=== PATIENT | female | born 1955 | race Caucasian/White ===

== ENCOUNTER 2016-07-28 07:48 | Emergency (ER) | payer MEDICARE, MEDICAID ==
[~2016-07-28] VITALS: Ht 160 cm; Wt 77.3 kg
[~2016-07-28 07:48] MED LIST: ABILIFY20 MG PO; ASPIRIN 32325 MG/TAB PO; CYMBALTA 60MG60 MG PO; DEPAKOTE ER 25250 MG PO; DEPAKOTE ER 50500 MG PO; DESYREL 50MG50 MG PO; EVISTA 60MG60 MG/TAB PO; KLONOPIN 0.5MG0.5 MG PO; LASIX 20MG TABL20 MG PO; LIPITOR20 MG PO; MOBIC15 MG PO; NORVASC 10MG10 MG PO; PRIL40 PO; PRINIVIL20 MG PO; SYNTHROID0.1 MG/TAB PO; ULTRAM 50MG TAB50 MG PO
[2016-07-28 07:51] VITALS: BP 107/62; PULSE 91; TEMP 98.2
[2016-07-28] MEDS ORDERED: LEXAPRO20 MG PO (07:58)
[2016-07-28] MEDS ORDERED: REXULTI2 MG PO (08:00)
[2016-07-28] MEDS ORDERED: DEPAKOTE500 MG PO (08:01)
[2016-07-28] MEDS ORDERED: COGENTIN .0.5 MG/TAB PO (08:02)
[2016-07-28 08:46] LABS: BASO % 0.6 % (0.0-2.0); EOS # 0.1 (0.0-0.7); EOS % 1.4 % (0-4.0); GRAN # 2.6 (1.4-6.5); GRAN % 38.6 % (42.2-75.2); HEMATOCRIT 39.8 % (37.0-47.0); HEMOGLOBIN 12.5 g/dl (12.5-16.0); LYMPH # 3.3 (1.2-3.4); LYMPH % 50.2 % (20.0-51.0); MEAN CELL VOLUME 89 fl (80.0-100.0); MEAN CORPUSCULAR HEMOGLOBIN 28 pg (27.0-31.0); MEAN CORPUSCULAR HGB CONC 31 g/dl (33.0-37.0); MEAN PLATELET VOLUME 10.2 fl (7.4-10.4); MONO # 0.6 (0.1-0.6); MONO % 8.9 % (1.7-9.3); PLATELET COUNT 311 K/mm3 (130-400); RED BLOOD COUNT 4.49 M/mm3 (4.10-5.30); REDCELL DISTRIBUTION WIDTH-CV 15.8 % (11.5-14.5); WHITE BLOOD COUNT 6.7 K/mm3 (4.8-10.8)
[2016-07-28 08:53] LABS: ACETAMINOPHEN < 10 ug/mL (10-30); ADJUSTED CALCIUM 9.1 mg/dL (8.4-10.2); ALANINE AMINOTRANSFERASE 29 U/L (9-52); ALBUMIN 3.5 gm/dL (3.5-5.0); ALKALINE PHOSPHATASE 61 U/L (50-136); ANION GAP 13 mmol/L (7-16); BILIRUBIN,TOTAL 0.5 mg/dL (0.0-1.0); BLOOD UREA NITROGEN 13 mg/dL (7-17); CALCIUM 8.7 mg/dL (8.4-10.2); CARBON DIOXIDE 24 mmol/L (22-30); CHLORIDE 105 mmol/L (98-107); GLUCOSE 105 mg/dL (74-106); POTASSIUM 3.7 mmol/L (3.4-5.0); SALICYLATE < 1.0 mg/dL; SODIUM 142 mmol/L (137-145); TOTAL PROTEIN 6.6 gm/dL (6.4-8.2)
[2016-07-28 09:24] LABS: AMPHETAMINE URINE NEGATIVE; BARBITURATES URINE NEGATIVE; BENZODIAZEPINES URINE POSITIVE; BUPRENORPHINE URINE NEGATIVE; METHADONE URINE NEGATIVE; OPIATES URINE NEGATIVE; OXYCODONE URINE NEGATIVE; PHENCYCLIDINE URINE NEGATIVE; PROPOXYPHENE URINE NEGATIVE; THC CANNABINOIDS URINE NEGATIVE
== END 2016-07-28 15:52 ==
LOC: COL.ER 07:48
PROVIDERS: Physician Assistant
DX: F31.4 Bipolar disorder, current episode depressed, severe, without psychotic features (principal); R45.851 Suicidal ideations; Z91.5 Personal history of self-harm

== ENCOUNTER 2016-10-07 18:32 | Emergency (ER) | payer MEDICARE, MEDICAID ==
[~2016-10-07] VITALS: Ht 160 cm; Wt 75.3 kg
[~2016-10-07 18:32] MED LIST changes: +COGENTIN .0.5 MG/TAB PO; +DEPAKOTE500 MG PO; +LEXAPRO20 MG PO; +REXULTI2 MG PO
[2016-10-07 18:37] VITALS: TEMP 97.8
[2016-10-07] MEDS ORDERED: LATUDA20 MG PO (19:06)
[2016-10-07] MEDS ORDERED: COZAAR100 MG PO (19:08)
[2016-10-07] MEDS ORDERED: K-TAB10 PO (19:09)
[2016-10-07 19:23] LABS: BASO # 0.1 (0.0-0.2); BASO % 0.6 % (0.0-2.0); EOS # 0.1 (0.0-0.7); EOS % 1.3 % (0-4.0); GRAN # 3.3 (1.4-6.5); GRAN % 42.3 % (42.2-75.2); HEMATOCRIT 37.8 % (37.0-47.0); HEMOGLOBIN 12.1 g/dl (12.5-16.0); LYMPH # 3.4 (1.2-3.4); LYMPH % 43.7 % (20.0-51.0); MEAN CELL VOLUME 88 fl (80.0-100.0); MEAN CORPUSCULAR HEMOGLOBIN 28 pg (27.0-31.0); MEAN CORPUSCULAR HGB CONC 32 g/dl (33.0-37.0); MEAN PLATELET VOLUME 9.7 fl (7.4-10.4); MONO # 0.9 (0.1-0.6); MONO % 11.8 % (1.7-9.3); PLATELET COUNT 384 K/mm3 (130-400); REDCELL DISTRIBUTION WIDTH-CV 16.4 % (11.5-14.5); WHITE BLOOD COUNT 7.8 K/mm3 (4.8-10.8)
[2016-10-07 19:33] LABS: ADJUSTED CALCIUM 9.2 mg/dL (8.4-10.2); ALANINE AMINOTRANSFERASE 29 U/L (9-52); ALBUMIN 3.6 gm/dL (3.5-5.0); ALKALINE PHOSPHATASE 62 U/L (50-136); ANION GAP 12 mmol/L (7-16); BILIRUBIN,TOTAL 0.5 mg/dL (0.0-1.0); BLOOD UREA NITROGEN 9 mg/dL (7-17); CALCIUM 8.9 mg/dL (8.4-10.2); CARBON DIOXIDE 28 mmol/L (22-30); CHLORIDE 99 mmol/L (98-107); CREATININE, serum 0.85 mg/dL (0.52-1.25); GLUCOSE 103 mg/dL (74-106); POTASSIUM 3.2 mmol/L (3.4-5.0); SODIUM 139 mmol/L (137-145); TOTAL PROTEIN 6.5 gm/dL (6.4-8.2)
[2016-10-07 19:40] LABS: ACETAMINOPHEN < 10 ug/mL (10-30); SALICYLATE < 1.0 mg/dL
[2016-10-07 19:41] LABS: B-TYPE NATRIURETIC PEPTIDE 63 pg/mL (0-125)
[2016-10-07 20:01] LABS: PH 7 (5-8); SQUAMOUS EPITHELIAL 0-2 /hpf; URINE APPEARANCE Clear; URINE BACTERIA None Seen /hpf; URINE BILIRUBIN Negative (NEGATIVE); URINE BLOOD Negative (NEGATIVE); URINE COLOR Colorless; URINE GLUCOSE Negative (NEGATIVE); URINE KETONE Negative (NEGATIVE); URINE RBC 0-2 /hpf; URINE UROBILINOGEN Negative (NEGATIVE); URINE WBC 0-2 /hpf
[2016-10-07 20:08] LABS: AMPHETAMINE URINE NEGATIVE; BARBITURATES URINE NEGATIVE; BENZODIAZEPINES URINE NEGATIVE; BUPRENORPHINE URINE NEGATIVE; METHADONE URINE NEGATIVE; OPIATES URINE NEGATIVE; OXYCODONE URINE NEGATIVE; PHENCYCLIDINE URINE NEGATIVE; PROPOXYPHENE URINE NEGATIVE; THC CANNABINOIDS URINE NEGATIVE
[2016-10-07 22:36] VITALS: BP 145/95; PULSE 98
== END 2016-10-07 22:47 | disposition home or self-care (01) ==
LOC: COL.ER 18:32
PROVIDERS: Emergency Medicine
DX: F32.9 Major depressive disorder, single episode, unspecified (principal); R45.851 Suicidal ideations; I10 Essential (primary) hypertension; E87.6 Hypokalemia; R60.0 Localized edema; F17.210 Nicotine dependence, cigarettes, uncomplicated

== ENCOUNTER 2018-04-23 15:25 | Inpatient (IN) | payer MEDICARE, MEDICAID ==
[~2018-04-23] VITALS: Ht 160 cm; Wt 60.2 kg
[~2018-04-23 15:25] MED LIST changes: +COZAAR100 MG PO; +K-TAB10 PO; +LATUDA20 MG PO
[2018-05-28] VITALS (10 sets, daily range): BP systolic 92–131; BP diastolic 51–97; PULSE 77–993; TEMP 97.2–988
[2018-05-28] MEDS ORDERED: FLONASE NASAL S16 GM NS (02:37)
[2018-05-28] MEDS ORDERED: VITAMIN C500 MG PO (02:37)
[2018-05-28] MEDS ORDERED: XALATAN EYE DROPS OD (02:38)
[2018-05-28] MEDS ORDERED: FOLIC ACID0.4 MG PO (02:38)
[2018-05-28] MEDS ORDERED: LASIX 20MG TABL20 MG PO (02:39)
[2018-05-28] MEDS ORDERED: CLARITIN 1010 MG/TAB PO (02:40)
[2018-05-28] MEDS ORDERED: ASPIRIN 32325 MG/TAB PO (02:41)
[2018-05-28] MEDS ORDERED: FERROUS SU325 MG/TAB PO (02:42)
[2018-05-28] MEDS ORDERED: LATUDA40 MG PO (02:43)
[2018-05-28] MEDS ORDERED: MOBIC15 MG PO ×2 (02:43)
[2018-05-28] MEDS ORDERED: NEURONTIN300 MG/CAP PO (02:44)
--- NOTE | 2018-05-28 10:07 | NUR ---
PATIENT TO ROOM 325 PER BED WITH LOLI JOHN PACU GIVING REPORT @ 0724. PT IS A/O X3, LUNGS CLEAR, BOWEL SOUNDS ACTIVE. NO MOTOR OR SENSORY BELOW HIPS. DRESSING TO RIGHT HIP CDI WITH OCCLUSIVE BULKY DRESSING COMPLETE. PEDAL PULSES PALPABLE BILATERALLY. SCDS PLACED. IV TO PUMP.
--- NOTE | 2018-05-28 10:39 | NUR ---
BRIGITTE and SW student met with patient and her family to discuss discharge planning. Patient lives at [facility] in [place] for [facility] care. She would like to return there for skilled care and signed a choice form that was placed on the chart. Patients PCP is Dr Amanda Sanchez and she obtains her medications at [facility]. BRIGITTE faxed referral to [facility] [place] and will continue to follow.
--- NOTE | 2018-05-28 19:30 | NUR ---
Assessment completed. Patient is A&O x 4. VSS, on room air. Pain controlled at this time with prn [place]. IV Toradol noted to not be scheduled as it is directed in the orders, sent message to e-pharmacy to scheduled IV Toradol and Celebrex after Toradol is completed per orders. Aquacell dressing to right hip is CDI with an ice pack maintained. Pedal pulses intact. BLE janet hose/scds on. Tolerating diet with no c/o nausea. Marmolejo catheter to DD with yellow clear urine draining. IVF infusing with intermittent antibiotic per orders. Up with assist x 1 with walker and gait belt, ambulated 50 feet in the hallway with a slow and steady gait. Assisted with repositioning in bed. Denies any concerns or needs at this time. Bed is in a low position with call light in reach.
--- NOTE | 2018-05-28 23:20 | NUR ---
Patient is resting in bed, states she was able to good a good nap in. [place] given for c/o RLE pain and repositioned in bed. E-Pharmacy corrected Toradol and Celebrex orders, Toradol started at this time and patient educated on medication. Denies any concerns or needs, call light remains within reach.
[2018-05-29 00:45] VITALS: BP 105/65; PULSE 102; TEMP 98.3
[2018-05-29 05:31] VITALS: BP 106/61; PULSE 95; TEMP 98.1
--- NOTE | 2018-05-29 05:33 | NUR ---
Patient has rested well through the night. VSS, remains on room air. Pain has been controlled with prn [place] and scheduled IV Toradol. Aquacell dressing to right hip remains CDI with a fresh ice pack applied this morning. Marmolejo catheter remains to DD with yellow clear urine draining. IV to INT this morning after last dose of antibiotic. Denies any concerns or needs, call light is within reach.
[2018-05-29] MEDS ORDERED: ASPIRIN 32325 MG/TA1 PO (06:36)
[2018-05-29] MEDS ORDERED: CELEBREX 200MG200 MG PO (06:37)
[2018-05-29] MEDS ORDERED: ULTRAM 50MG TAB50 MG PO (06:37)
[2018-05-29] MEDS ORDERED: NORCO 325 MG-7.1 TAB PO (06:37)
[2018-05-29 07:04] LABS: HEMATOCRIT 27.6 % (37.0-47.0); HEMOGLOBIN 8.9 g/dl (12.5-16.0)
[2018-05-29 08:04] VITALS: BP 105/76; PULSE 92; TEMP 97.6
[2018-05-29 11:46] VITALS: BP 106/75; PULSE 91; TEMP 18
--- NOTE | 2018-05-29 14:42 | NUR ---
BRIGITTE received a call from So at [facility]. They are concerned about transportation this weekend as everyone that can drive the van is gone. BRIGITTE informed her that she could go by car if needed. So is going to talk to team tomorrow to see if they can figure out transport, if not son reports he can do it but will have to cancel plans on sat. He wants his wifes phone called at [phone].
--- NOTE | 2018-05-29 19:45 | NUR ---
Pt. sitting up in chair at this time. Pt. sis A&OX3, assessment complete. INT to rt. wrist patent. Aquacell dressing to rt. hip CDI. Pt. denies pain or other needs at this time. Call light within reach.
[2018-05-29 20:58] VITALS: BP 109/72; PULSE 68; TEMP 98.2
[2018-05-30 00:06] VITALS: BP 124/67; PULSE 70; TEMP 98.1
--- NOTE | 2018-05-30 06:08 | NUR ---
Pt. slept well through the night. Pt. remains A&OX3. INT to rt. wrist remains patent. Dressing to rt. hip CDI. Pt. denies pain or other needs, call light within reach.
[2018-05-30 06:28] LABS: HEMOGLOBIN 9.1 g/dl (12.5-16.0)
--- NOTE | 2018-05-30 07:03 | NUR ---
REPORT FROM DAMION JOHN. PT TO DISCHARGE TO [facility] ON SAT PER AERODYNAMICIST. PT RESTING IN BED AND DENIES NEEDS.
[2018-05-30 07:04] VITALS: BP 117/79; PULSE 95; TEMP 98.9
--- NOTE | 2018-05-30 09:09 | NUR ---
PATEINT SITTING UP IN BED, PT REFUSING BREAKFAST. PO MEDICATIONS ORDERED. PAIN CONTROLLED WITH PO MEDICATIONS.
--- NOTE | 2018-05-30 11:39 | NUR ---
First visit from the operater. No needs right now.
--- NOTE | 2018-05-30 11:54 | NUR ---
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 SW informed nurse.
[2018-05-30 12:19] VITALS: BP 89/61; PULSE 94; TEMP 97.9
--- NOTE | 2018-05-30 13:32 | NUR ---
So from [facility] will be here to transport patient at 10:30 am. BRIGITTE informed nurse of plan.
[2018-05-30 16:06] VITALS: BP 92/56; PULSE 94; TEMP 98.6
--- NOTE | 2018-05-30 18:57 | NUR ---
Report to Pat JOHN.
--- NOTE | 2018-05-30 20:00 | NUR ---
Patient in chair resting; alert and oriented x3. Shift assessment complete. Aquacell to right hip with scant drainage present. Patient ambulated >100 feet, stand by assist with walker. Steady gait. Denies pain at this time. Deneis further needs at this time.
[2018-05-30 20:20] VITALS: BP 90/61; PULSE 82; TEMP 98.5
[2018-05-31 03:48] VITALS: BP 84/51; PULSE 88; TEMP 98.1
[2018-05-31 06:05] VITALS: BP 86/62; PULSE 88
--- NOTE | 2018-05-31 06:22 | NUR ---
Patient has rested well through the night. Minimal needs. Has requested pain medications through the night, given per orders. Junior simon and SCDs maintained to BLE. Denies further needs at this time. Will report off to day shift.
--- NOTE | 2018-05-31 08:00 | NUR ---
PATIENT IS UP IN THE CHAIR THIS MORNING. PATIENT IS A&O. BLOOD PRESSURE LOW, OTHERWISE VSS. PATIENT'S MORNING BLOOD PRESSURE MEDICATIONS AND LASIX HELD. BOWEL SOUNDS ACTIVE ALL FOUR QUADRANTS. PATIENT TOLERATING FOOD & LIQUIDS WITHOUT ANY COMPLAINTS OF N/V. POSITIVE PEDAL PULSES EQUAL BILATERALLY. CAP REFILL <3 SECONDS. CMS INTACT. NON-PITTING EDEMA TO BLE NOTED. SCANT OLD DRAINAGE PRESENT ON AQUACEL DRESSING. AQUACEL DRESSING REMOVED AND REPLACE PER ORTHOPEDIC ORDERS. PATIENT TOLERATED WELL. BREAKFAST TRAY EATEN. CALL LIGHT WITHIN REACH. NO OTHER NEEDS AT THIS TIME.
[2018-05-31 08:07] VITALS: BP 89/62; PULSE 92; TEMP 98.4
[2018-05-31 10:20] VITALS: BP 89/62; PULSE 92; TEMP 98.4
--- NOTE | 2018-05-31 10:30 | NUR ---
PATIENT GIVEN 2 TABLETS OF PRN TRAMADOL PRIOR TO TRANSFER. PATIENT PERSONAL BELONGINGS GATHERED. PATIENT TAKEN TO PRIVATE TRANSPORT VEHICLE VIA WHEELCHAIR BY SURGICAL STAFF. PATIENT TRANSFERRED.
--- NOTE | 2018-05-31 11:42 | NUR ---
REPORT CALLED TO ALVARO DALEY AT [facility]. PATIENT TRANSFERRED.
== END 2018-05-31 10:30 | DRG 470 ==
LOC: SURG 05-28 05:08 → JCC 05-28 07:30
PROVIDERS: ADMIT Orthopaedic Surgery
PROC: 0SR90JA Replacement of Right Hip Joint with Synthetic Substitute, Uncemented, Open Approach (ICD-10-PCS; principal; 2018-05-28 07:30)
DX: M16.11 Unilateral primary osteoarthritis, right hip (principal); M87.051 Idiopathic aseptic necrosis of right femur; I10 Essential (primary) hypertension; Z85.3 Personal history of malignant neoplasm of breast; Z87.891 Personal history of nicotine dependence; E78.5 Hyperlipidemia, unspecified; F31.9 Bipolar disorder, unspecified; F06.31 Mood disorder due to known physiological condition with depressive features
CPT/HCPCS: A4314; A9284; C1713; C1776; J0690; J1885; J2250; J2270; J2370; J2704; J2765; J3010; J7050; J7120; J7121

== ENCOUNTER → 2018-05-19 | Outpatient (CLI) | payer MEDICARE, MEDICAID | LOC: COL.LAB 11:56 | DX: Z01.812 Encounter for preprocedural laboratory examination (principal); M87.851 Other osteonecrosis, right femur ==